=== PATIENT | male | born 2000 | race Caucasian/White ===

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

== ENCOUNTER 2020-10-17 16:18 | Emergency (ER) | payer SELFPAY ==
[~2020-10-17] VITALS: Ht 175.3 cm; Wt 67.6 kg
--- NOTE | 2020-10-17 16:25 | NUR ---
, c/o left shoulder pain s/p fell off his skateboard, 12/27 pain. On room air, breathing evenly and unlabored. Kept comfortable, will continue to monitor accordingly.
[2020-10-17] MEDS ORDERED: KETOROLAC TROMETHAMINE 15 MG/ML VIAL ONE (16:38)
[2020-10-17] MEDS: KETOROLAC TROMETHAMINE INJ 30 MG/ML VIAL IM ONE (16:42)
[2020-10-17] MEDS ORDERED: HYDROCODONE/APAP 5/325MG TABLET ONE (17:08)
[2020-10-17] MEDS ORDERED: NALO4SPR NS (17:10)
[2020-10-17] MEDS ORDERED: HYDR-4303 PO (17:10)
[2020-10-17] MEDS ORDERED: IBUP-1955 PO (17:10)
[2020-10-17] MEDS: HYDROCODONE/APAP 5/325MG TABLET PO ONE (17:11)
[2020-10-17 17:35] VITALS: BP 135/77
--- NOTE | 2020-10-17 17:35 | NUR ---
Patient discharged to home in stable condition. Written and verbal after care instructions given. Patient verbalizes understanding of instruction.
== END 2020-10-17 17:35 | disposition home or self-care (01) ==
LOC: ER 16:37
DX: S42.031A Displaced fracture of lateral end of right clavicle, initial encounter for closed fracture (principal); V00.131A Fall from skateboard, initial encounter; Y93.51 Activity, roller skating (inline) and skateboarding; Y92.89 Other specified places as the place of occurrence of the external cause; Y99.8 Other external cause status
CPT/HCPCS: 73030; 96372; 99283; J1885